=== PATIENT | male | born 1965 | race Two or more races ===

== ENCOUNTER 2018-01-16 16:09 | Emergency (ER) | payer MEDICAID ==
[~2018-01-16] VITALS: Ht 177.8 cm; Wt 101.6 kg
[2018-01-16] MEDS ORDERED: ASPIRIN 325 MG TABLET PO ONE (16:15)
[2018-01-16] MEDS ORDERED: ASPIRIN 325 MG TABLET ONE (16:18)
[2018-01-16 16:29] LABS: BASOPHILS % (AUTO) 0.8 % (0.0-2.0); EOSINOPHILS # (AUTO) 0.1 K/uL (0.0-0.7); EOSINOPHILS % (AUTO) 1.7 % (0.0-7.0); HEMATOCRIT 42.5 % (36.7-47.1); HEMOGLOBIN 14.2 g/dL (12.5-16.3); LYMPHOCYTES # (AUTO) 1.5 K/uL (20.0-40.0); LYMPHOCYTES % (AUTO) 27.1 % (20.5-51.5); MEAN CORPUSCULAR HEMOGLOBIN 27.7 uug (23.8-33.4); MEAN CORPUSCULAR HGB CONC 34 g/dL (32.5-36.3); MEAN CORPUSCULAR VOLUME 82.8 fL (73.0-96.2); MONOCYTES # (AUTO) 0.5 K/uL (2.0-10.0); MONOCYTES % (AUTO) 8.3 % (0.0-11.0); NEUTROPHILS # (AUTO) 3.4 K/uL (1.8-8.9); NEUTROPHILS % (AUTO) 62.1 % (38.5-71.5); PLATELET COUNT (AUTO) 176 K/uL (152-348); RED BLOOD CELL COUNT(AUTO) 5.13 MIL/uL (4.06-5.63); WHITE BLOOD COUNT (AUTO) 5.5 K/uL (3.6-10.2)
[2018-01-16 16:37] LABS: POTASSIUM 4.1 mmol/L (3.5-5.1)
[2018-01-16 16:43] LABS: BILIRUBIN,TOTAL 0.8 mg/dL (0.2-1.0); TOTAL PROTEIN, SERUM 7.3 g/dL (6.4-8.2)
--- NOTE | 2018-01-16 16:59 | NUR ---
PT IS IN ROOM #2A. DR BREAUX EVALUATED THE PT.
--- NOTE | 2018-01-16 19:19 | NUR ---
PT IN BED WATCHING TV. PT IS CALM AND COOPERATIVE. PT A&OX4. VSS. BREATH SOUNDS REGULAR AND UNLABORED. REPORT RECEIVED FROM DAY SHIFT. PT'S LABS AND RADIOLOGY REVIEWED. WAITING TO GIVE REPORT TO TELE NURSE AND TRANFER PT TO 2ND FLOOR.
--- NOTE | 2018-01-16 19:21 | NUR ---
REPORT GIVEN TO [employer] RN.
--- NOTE | 2018-01-16 19:39 | NUR ---
IV removed. Catheter intact and site benign. Pressure and 4x4 gauze applied to site. No bleeding noted.
[2018-01-16] MEDS ORDERED: ASPIRIN 81 MG TAB.CHEW PO SCH (19:45)
[2018-01-16] MEDS ORDERED: METOPROLOL TARTRATE 50 MG TABLET PO SCH (19:45)
[2018-01-16] MEDS ORDERED: NITROGLYCERIN 0.4 MG/TAB BOTTLE SL PRN (19:45)
[2018-01-16] MEDS ORDERED: MORPHINE SULFATE 2 MG/1 ML DISP.SYRIN IV PRN (19:45)
--- NOTE | 2018-01-16 19:50 | NUR ---
PT DECIDES TO LEAVE AMA. MD TYSON MADE AWARE. EXPLAINS TO PT ABOUT TO SEVERITY OF HIS CONDITION PRIOR TO DC. PT STATES THAT HE WILL SEE PMD IN THE AM.
== END 2018-01-16 20:27 | disposition left against medical advice (07) ==
LOC: ER 16:09
DX: R07.89 Other chest pain (principal)
CPT/HCPCS: 36415; 70030-TC; 71045; 85025; 85610; 93005; A4663